=== PATIENT | male | born 1960 | race Two or more races ===

== ENCOUNTER 2016-12-24 06:49 | Emergency (ER) | payer OTHER ==
[~2016-12-24] VITALS: Ht 162.6 cm; Wt 75.7 kg
--- NOTE | 2016-12-24 07:35 | RAD ---
Chest, 2 views, 12/24/2016: History: Fever, cough, nasal congestion The heart size and pulmonary vascularity are normal. No pulmonary infiltrates are seen. There is no evidence of pleural fluid. IMPRESSION: No acute cardiopulmonary abnormality is detected.
[2016-12-24] MEDS: ACETAMINOPHEN 325 MG TABLET PO ONE (07:47)
--- NOTE | 2016-12-24 07:50 | ED.ADGEN ---
Past History Past Medical History: No Pertinent History Past Surgical History: No Surgical History Alcohol Use: None Drug Use: None Adult General Chief Complaint Chief Complaint Cough, fever HPI HPI Patient is a 56-year-old male who presents with. fever, cough, sore throat, body aches the past 2 days. No SOB. No headache, neck stiffness or rash. Denies other complaints. Review of Systems Review of Systems ROS as per HPI. Allergies Allergies Allergies Coded Allergies Type Severity Reaction Last Updated Verified No Known Drug Allergies 12/24/16 No Physical Exam Physical Exam Constitutional: Well developed, well nourished, no acute distress, non-toxic appearance. HENT: Normocephalic, atraumatic, bilateral external ears normal, oropharynx moist, no oral exudates, nose, clear rhinorrhea. Eyes: PERRLA, EOMI, conjunctiva normal. Neck: Normal range of motion, no tenderness, supple, no stridor. Cardiovascular:Heart rate regular rhythm, no murmur. Lungs & Thorax: Bilateral breath sounds clear to auscultation. Abdomen: Bowel sounds normal, soft, no tenderness. Skin: Warm, dry, no erythema, no rash. Back: No tenderness, no CVA tenderness. Extremities: No tenderness. Neurologic: Alert and oriented X 3, normal motor function, normal sensory function, no focal deficits noted. Psychologic: Affect normal, judgement normal, mood normal. Current Patient Data Vital Signs Vital Signs Date Time Temp Pulse Resp B/P Pulse Ox O2 Delivery O2 Flow Rate FiO2 12/24/16 07:01 99.4 86 18 97 Room Air EKG EKG [] Radiology/Procedures Radiology/Procedures [Chest x-ray: NAD] Impressions: Flulike illness without respiratory compromise Course & Med Decision Making Course & Med Decision Making Pertinent Labs and Imaging studies reviewed. (See chart for details) [Tylenol given. Will tx supportively, PCP followup. Return precautions reviewed. Courtesy work note provided. ] Final Impression Final Impression [1. Influenza-like illness] Problems: Dragkatie Disclaimer Mariluon Disclaimer This electronic medical record was generated, in whole or in part, using a voice recognition dictation system. RONALD CHOE DO Dec 24, 2016 07:50
[2016-12-24 08:02] LABS: INFLUENZA A PATIENT NEGATIVE (NEGATIVE); INFLUENZA B PATIENT POSITIVE (NEGATIVE)
[2016-12-24 08:08] VITALS: BP 115/90
== END 2016-12-24 08:13 | disposition home or self-care (01) ==
LOC: ER 06:49
DX: J10.1 Influenza due to other identified influenza virus with other respiratory manifestations (principal)
CPT/HCPCS: 71020; 87804; 99285-25

== ENCOUNTER 2020-05-09 08:50 | Emergency (ER) | payer OTHER ==
[~2020-05-09] VITALS: Ht 170.2 cm; Wt 78.0 kg
[2020-05-09] MEDS ORDERED: LIDO:MAALOX 1:1 20 ML SINGLE DOSE. PO ONE (09:30)
[2020-05-09] MEDS ORDERED: FAMOTIDINE 20 MG/2 ML VIAL IVP ONE (09:45)
[2020-05-09] MEDS ORDERED: IV NORMAL SALINE 1,000ML 1,000 ML IV ONE (09:45)
[2020-05-09 10:01] LABS: BASO % 1 % (0-3); EOS # 0.1 x10^3/uL (0.0-0.7); EOS % 2 % (0-3); HEMATOCRIT 34.4 % (39.0-53.0); HEMOGLOBIN 11.9 g/dL (13.0-17.5); LYMPH # 1.4 x10^3/uL (1.0-4.8); LYMPH % 26 % (24-48); MEAN CORPUSCULAR HEMOGLOBIN 32 pg (25-35); MEAN CORPUSCULAR HGB CONC 35 g/dL (31-37); MEAN CORPUSCULAR VOLUME 92 fL (79-100); MONO # 0.5 x10^3/uL (0.0-1.1); MONO % 9 % (0-9); NEUT # 3.5 x10^3uL (1.8-7.7); NEUT % 63 % (31-73); PLATELET COUNT 239 x10^3/uL (140-400); RED BLOOD COUNT 3.74 x10^6/uL (4.30-5.70); RED CELL DISTRIBUTION WIDTH 13.3 % (11.5-14.5); WHITE BLOOD COUNT 5.5 x10^3/uL (4.0-11.0)
[2020-05-09 10:06] LABS: CALCIUM 8.5 mg/dL (8.5-10.1); POTASSIUM 3.9 mmol/L (3.5-5.1)
[2020-05-09 10:12] LABS: ALBUMIN 3.3 g/dL (3.4-5.0); ALBUMIN/GLOBULIN RATIO 0.9 (1.0-1.7); TOTAL BILIRUBIN 0.6 mg/dL (0.2-1.0); TOTAL PROTEIN 6.9 g/dL (6.4-8.2)
[2020-05-09] MEDS ORDERED: FAMO-63 PO (10:31)
--- NOTE | 2020-05-09 10:31 | PHYS DOC ---
Past History Past Medical History: No Pertinent History Past Surgical History: No Surgical History Smoking: Non-smoker Alcohol Use: None Drug Use: None General Adult EDM: Chief Complaint: ABDOMINAL PAIN HPI: HPI: Patient is a [age] year old [sex] who presents with [] Review of Systems: Review of Systems: Constitutional: Denies fever or chills Eyes: Denies redness or eye pain HENT: Denies nasal congestion or sore throat Respiratory: Denies cough or shortness of breath Cardiovascular: Denies chest pain or palpitations GI: Reports epigastric abdominal pain, nausea, and "dark" vomit and stools : Denies dysuria or hematuria Musculoskeletal: Denies back pain or joint pain Integument: Denies rash or skin lesions Neurologic: Denies headache, dizziness or sensory changes; reports generalized weakness Complete systems were reviewed and found to be within normal limits, except as documented in this note. Current Medications: Current Meds: Current Medications Medications (Trade) Dose Ordered Sig/Cyndy Start Time Stop Time Status Last Admin Dose Admin Famotidine (Pepcid Vial) 20 mg 1X ONCE 05/09/20 09:45 05/09/20 09:46 DC 05/09/20 09:59 20 MG Multi-Ingredient Mouthwash/Gargle (Gi Cocktail) 20 ml 1X ONCE 05/09/20 09:30 05/09/20 09:31 DC 05/09/20 09:39 20 ML Sodium Chloride 1,000 ml @ 1,000 mls/hr 1X ONCE 05/09/20 09:45 05/09/20 10:44 05/09/20 09:58 1,000 MLS/HR Allergies: Allergies: Allergies Coded Allergies Type Severity Reaction Last Updated Verified No Known Drug Allergies 12/24/16 No Physical Exam: PE: Constitutional: Well developed, well nourished, no acute distress, non-toxic appearance HENT: Normocephalic, atraumatic, oropharynx moist Eyes: Conjunctiva normal, no discharge Neck: Normal range of motion, no tenderness, supple Cardiovascular: Heart rate normal, regular rhythm Lungs & Thorax: Bilateral breath sounds clear to auscultation, no wheezing Abdomen: Soft, no tenderness Skin: Warm, dry, no erythema, no rash Back: No tenderness, no CVA tenderness Extremities: No tenderness, ROM intact, no edema Neurologic: Alert and oriented X 3, normal motor function, normal sensory function, no focal deficits noted Psychologic: Affect normal, judgment normal Current Patient Data: Labs: Laboratory Tests Test 05/09/20 09:49 White Blood Count 5.5 x10^3/uL (4.0-11.0) Red Blood Count 3.74 x10^6/uL (4.30-5.70) L Hemoglobin 11.9 g/dL (13.0-17.5) L Hematocrit 34.4 % (39.0-53.0) L Mean Corpuscular Volume 92 fL (79-100) Mean Corpuscular Hemoglobin 32 pg (25-35) Mean Corpuscular Hemoglobin Concent 35 g/dL (31-37) Red Cell Distribution Width 13.3 % (11.5-14.5) Platelet Count 239 x10^3/uL (140-400) Neutrophils (%) (Auto) 63 % (31-73) Lymphocytes (%) (Auto) 26 % (24-48) Monocytes (%) (Auto) 9 % (0-9) Eosinophils (%) (Auto) 2 % (0-3) Basophils (%) (Auto) 1 % (0-3) Neutrophils # (Auto) 3.5 x10^3uL (1.8-7.7) Lymphocytes # (Auto) 1.4 x10^3/uL (1.0-4.8) Monocytes # (Auto) 0.5 x10^3/uL (0.0-1.1) Eosinophils # (Auto) 0.1 x10^3/uL (0.0-0.7) Basophils # (Auto) 0.0 x10^3/uL (0.0-0.2) Sodium Level 141 mmol/L (136-145) Potassium Level 3.9 mmol/L (3.5-5.1) Chloride Level 106 mmol/L (98-107) Carbon Dioxide Level 27 mmol/L (21-32) Anion Gap 8 (6-14) Blood Urea Nitrogen 11 mg/dL (8-26) Creatinine 1.0 mg/dL (0.7-1.3) Estimated GFR (Cockcroft-Gault) 77.0 BUN/Creatinine Ratio 11 (6-20) Glucose Level 107 mg/dL (70-99) H Calcium Level 8.5 mg/dL (8.5-10.1) Total Bilirubin 0.6 mg/dL (0.2-1.0) Aspartate Amino Transferase (AST) 17 U/L (15-37) Alanine Aminotransferase (ALT) 21 U/L (16-63) Alkaline Phosphatase 88 U/L (46-116) Total Protein 6.9 g/dL (6.4-8.2) Albumin 3.3 g/dL (3.4-5.0) L Albumin/Globulin Ratio 0.9 (1.0-1.7) L Lipase 92 U/L (73-393) EKG: EKG: [] Radiology/Procedures: Radiology/Procedures: [] Course & Med Decision Making: Course & Med Decision Making Pertinent Lab studies reviewed. (See chart for details) Patient presents with 1 week history of epigastric abdominal pain. Reports "burning "pain. Patient also reports some "dark "emesis and stooling. Patient reports pain has significantly improved. Reports he went to his PCPs office today who directed him to the ER for further evaluation. Physical exam concerning for possible gastritis with possible bleeding ulcer. Patient's vital signs stable. Epigastrium slightly tender on palpation. No peritoneal signs noted. Afebrile. Labs obtained and posted to chart. Hemoglobin 11.9. No prior lab values noted per [employer] review. GI cocktail and Pepcid provided. IV fluid hydration also given. Patient reports interval improvement of symptoms. Patient stable for discharge with outpatient follow-up with PCP/GI. GI referral provided. Discussed findings and plan with patient, who acknowledges understanding and agreement. Luz Maria Disclaimer: Luz Maria Disclaimer: This electronic medical record was generated, in whole or in part, using a voice recognition dictation system. Departure Departure: Impression: Primary Impression: Epigastric abdominal pain Disposition: HOME/RESIDENCE PRIOR TO ADM Condition: STABLE Referrals: KAELA CARRENO MD (PCP) VANGIE MACDONALD MD Patient Instructions: Abdominal Pain (Nonspecific), Gastritis, Adult, [id number] Famotidine (PEPCID) 20 Mg Tablet 1 TAB PO BID for gastritis, #30 TAB Prov: CAMERON JOHN DO 05/09/20 Justification of Admission: Justification of Admission: Justification of Admission Dx: N/A CAMERON JOHN DO May 09, 2020 10:31
[2020-05-09 10:54] VITALS: BP 127/73
== END 2020-05-09 10:54 | disposition home or self-care (01) ==
LOC: ER 08:50
DX: R10.13 Epigastric pain (principal); R19.7 Diarrhea, unspecified; R53.1 Weakness; R11.10 Vomiting, unspecified
CPT/HCPCS: 36415; 80053; 83690; 85025; 96361; 96374; 99283; J3490; J7030

== ENCOUNTER → 2020-07-05 | Outpatient (CLI) | payer OTHER ==
[~2020-07-05] MED LIST: FAMO-63 PO; IOHEXOL 240 MG/ML 50ML VIAL. ONE; IOHEXOL 240 MG/ML 50ML VIAL. PO ONE; IOHEXOL 300 MG/ML 75 ML VIAL. IV ONE
--- NOTE | 2020-07-05 10:18 | RAD ---
CT CHEST ABD PELVIS W/CONTRAST Clinical Indication: Gastric cancer. Right-sided abdominal pain. COMPARISON: None TECHNIQUE: Multiple contiguous axial images were obtained throughout the chest, abdomen, and pelvis with the use of IV contrast. Axial images were reformatted into coronal and sagittal planes. 75 mL Omnipaque 300 was administered. One or more of the following dose reduction techniques were utilized: Automated exposure control (AEC), Adjustment of mA and/or kV according to patient size, Use of iterative reconstruction technique such as ASiR, CT scan done according to ALARA and image gently/image wisely. Findings: The thyroid is symmetric. There is no axillary, mediastinal, or hilar adenopathy. The thoracic aorta diameter is normal. The cardiac size is normal. There is no pericardial effusion. The central airways are patent. No pulmonary mass or consolidation. Left lower lobe 3 mm pulmonary nodule (series 4 image 64). Calcified pulmonary granuloma. Mosaic attenuation of the lung parenchyma, likely due to small airways disease. No pleural effusion is observed. There is no pneumothorax. The liver, gallbladder, spleen, pancreas, and adrenal glands are unremarkable. The kidneys are unremarkable. There is no significant mesenteric or retroperitoneal adenopathy identified. There is no evidence of free intraperitoneal fluid or pneumoperitoneum. Mild colonic diverticulosis. Mild aortoiliac atherosclerotic disease. Bladder is unremarkable. There is no significant pelvic ascites. No significant iliac or inguinal adenopathy is identified. No acute osseous abnormality. No aggressive lytic or blastic osseous lesions. Small bilateral fat-containing inguinal hernias. IMPRESSION: 1. No acute findings. 2. No evidence of metastatic disease. No mass or lymphadenopathy. 3. Colonic diverticulosis without evidence of acute diverticulitis. 4. Indeterminate left lower lobe 3 mm pulmonary nodule. Attention on follow-up imaging, as per clinical protocol. Electronically signed by: Sumit Laurent MD (07/05/2020 10:15 AM) [id number]
== END ==
LOC: CT 07:50
PROVIDERS: ATTEND Internal Medicine Gastroenterology
DX: C16.9 Malignant neoplasm of stomach, unspecified (principal); K57.30 Diverticulosis of large intestine without perforation or abscess without bleeding
CPT/HCPCS: 71260; 74177; Q9967

== ENCOUNTER → 2020-10-07 | Outpatient (CLI) | payer OTHER ==
[~2020-10-07] MED LIST changes: -IOHEXOL 240 MG/ML 50ML VIAL. ONE; -IOHEXOL 240 MG/ML 50ML VIAL. PO ONE; -IOHEXOL 300 MG/ML 75 ML VIAL. IV ONE
[2020-10-07 13:39] LABS: BASO % 1 % (0-3); EOS # 0.1 x10^3/uL (0.0-0.7); EOS % 2 % (0-3); HEMATOCRIT 41.5 % (39.0-53.0); LYMPH # 1.9 x10^3/uL (1.0-4.8); LYMPH % 37 % (24-48); MEAN CORPUSCULAR HEMOGLOBIN 30 pg (25-35); MEAN CORPUSCULAR HGB CONC 34 g/dL (31-37); MEAN CORPUSCULAR VOLUME 89 fL (79-100); MONO # 0.4 x10^3/uL (0.0-1.1); MONO % 8 % (0-9); NEUT # 2.8 x10^3uL (1.8-7.7); NEUT % 53 % (31-73); PLATELET COUNT 259 x10^3/uL (140-400); RED BLOOD COUNT 4.69 x10^6/uL (4.30-5.70); RED CELL DISTRIBUTION WIDTH 14.7 % (11.5-14.5); WHITE BLOOD COUNT 5.2 x10^3/uL (4.0-11.0)
[2020-10-07 13:57] LABS: ALBUMIN 3.8 g/dL (3.4-5.0); CALCIUM 8.9 mg/dL (8.5-10.1); CREATININE 0.8 mg/dL (0.7-1.3); GFR 99.6; POTASSIUM 3.8 mmol/L (3.5-5.1); TOTAL BILIRUBIN 1.2 mg/dL (0.2-1.0); TOTAL PROTEIN 7.6 g/dL (6.4-8.2)
== END ==
LOC: LAB 13:09
PROVIDERS: ATTEND Family Medicine
DX: E03.9 Hypothyroidism, unspecified (principal)
CPT/HCPCS: 36415; 80053; 85025

== ENCOUNTER → 2020-12-02 | Outpatient (CLI) | payer OTHER | LOC: LAB 09:12 | PROVIDERS: ATTEND Internal Medicine Hematology & Oncology | DX: C16.0 Malignant neoplasm of cardia (principal) | CPT/HCPCS: 36415; 87493 ==

== ENCOUNTER 2021-02-01 22:19 | Emergency (ER) | payer OTHER ==
[~2021-02-01] VITALS: Ht 170.2 cm; Wt 80.6 kg
--- NOTE | 2021-02-02 00:31 | PHYS DOC ---
Past History Past Medical History: No Pertinent History Past Surgical History: No Surgical History Smoking: Non-smoker Alcohol Use: None Drug Use: None General Pediatric Assessment History of Present Illness Patient is an otherwise healthy 18-year-old male who presents with a chief complaint of hiccups. States that he woke up at about 8:00 this morning and had intermittent hiccups about 4 in the afternoon and they went away. States that they started up again just before coming to the emergency department and is making his chest wall sore. States he never had anything like this happen before. Denies any recent travel, traumas, injuries, fevers, illnesses, known ill contacts, chest pain, shortness of breath, abdominal pain, nausea, vomiting, dysuria, hematuria, blood in the stool or diarrhea. Denies any alcohol or drug use. EGD eating and drinking normally for him. States he is making urine and stool normally for him. Review of Systems Review of systems otherwise unremarkable except noted in HPI Allergies Allergies Coded Allergies Type Severity Reaction Last Updated Verified No Known Drug Allergies 12/24/16 No Physical Exam Constitutional: Well developed, well nourished, no acute distress, non-toxic appearance, positive interaction, playful. HENT: Normocephalic, atraumatic, oropharynx moist, Eyes: conjunctiva normal, no discharge. Neck: Normal range of motion, no tenderness, supple, no stridor. Cardiovascular: Normal heart rate, normal rhythm, Thorax and Lungs: Normal breath sounds, no respiratory distress, Abdomen: soft, no tenderness, no masses, no pulsatile masses. Skin: Warm, dry, no erythema, no rash. Musculoskeletal: Good ROM in all major joints, Neurologic: Alert and oriented X 3, normal motor function, normal sensory function, no focal deficits noted. Psychologic: Affect normal, judgement normal, mood normal. Radiology/Procedures [] Current Patient Data Active Scripts Medications Dose Route/Sig Max Daily Dose Days Date Category Pepcid (Famotidine) 20 Mg Tablet 1 Tab PO BID 05/09/20 Rx Vital Signs Date Time Temp Pulse Resp B/P (MAP) Pulse Ox O2 Delivery O2 Flow Rate FiO2 02/01/21 22:57 99.0 95 16 131/54 98 Vital Signs Date Time Temp Pulse Resp B/P (MAP) Pulse Ox O2 Delivery O2 Flow Rate FiO2 02/01/21 22:57 99.0 95 16 131/54 98 Vital Signs Date Time Temp Pulse Resp B/P (MAP) Pulse Ox O2 Delivery O2 Flow Rate FiO2 02/01/21 22:57 99.0 95 16 131/54 98 Course & Med Decision Making Patient is a 18-year-old male who presents to the emergency department with a chief complaint of hiccups Vital signs not concerning. Physical exam noted above. The entire time in the emergency department patient had resolution of his hiccups. Patient allowed to sit in the emergency department and be observed for a while to see if any intervention was needed. On second reevaluation patient still without hiccups and stated he felt safe to discharge home and call his primary care physician tomorrow to discuss this issue with the had any more problems. Gave return precautions to the ED. Family grateful, verbalized understanding and agreed with plan of discharge. [] Departure Departure: Impression: Primary Impression: Hiccups Disposition: HOME / SELF CARE / HOMELESS Condition: GOOD Referrals: JAIR WYNN MD (PCP) Patient Instructions: Hiccups Additional Instructions: Please read all of the attached information on hiccups. Please call your primary care physician first thing in the morning to update on your ED visit and set up a follow-up appointment if needed. Please come back to the ED with new or concerning symptoms as discussed. YESSENIA BARRIENTOS MD February 02, 2021 00:31
== END 2021-02-02 02:00 | disposition home or self-care (01) ==
LOC: ER 22:19 → EDBD 22:19 → ER 02-02 02:00
DX: R06.6 Hiccough (principal)
CPT/HCPCS: 99281